=== PATIENT | female | born 1960 | race Caucasian/White ===

== ENCOUNTER → 2020-06-18 | Outpatient (CLI) | payer OTHER | LOC: M.ULTRA 15:58 | PROVIDERS: ATTEND Specialist | DX: R22.0 Localized swelling, mass and lump, head (principal) ==

== ENCOUNTER 2020-08-29 13:52 | Inpatient (IN) | payer OTHER ==
[~2020-08-29] VITALS: Ht 152.4 cm; Wt 54.4 kg
--- NOTE | ~2020-08-29 | OP ---
[facility] [address] [place] [address] OPERATIVE REPORT Name: JAS MENDOZA Room: [address] IN M.R.#: [id number] Admission: 08/29/20 Attend Phys: Arun Holt Discharge: Date of : 56 Report #: [id number] THIS REPORT FOR: cc: Pernell Carmichael. Pernell Chaudhary. KEN ~ Arun Holt MD DATE OF SERVICE: 08/29/2020 PREOPERATIVE DIAGNOSIS: Acute appendicitis. POSTOPERATIVE DIAGNOSES: Acute perforated appendicitis. OPERATION: Laparoscopic appendectomy. SURGEON: Arun Holt MD ANESTHESIA: General. ESTIMATED BLOOD LOSS: Minimal. SPECIMEN: Appendix. DESCRIPTION OF PROCEDURE: After informed consent was obtained, the patient was brought to the operating room and placed supine. SCDs were placed and working, preoperative antibiotics were administered, general anesthesia was induced. The abdomen was prepped and draped in the usual sterile fashion. A 10 mm incision was made below the umbilicus. Fascia was incised and a trocar was placed. Pneumoperitoneum was established. Right upper quadrant and left lower quadrant 5 mm trocars were placed. The appendix was noted to be severely inflamed. Once I just touched the appendix, it leaked stool through a perforation. This was suctioned out. I was able to ligate the mesoappendix using the LigaSure device. The base of the appendix was healthy. This was stapled off with a LEEANN blue load stapler. A single fire was used. The appendix was then placed into an Endopouch and removed. Fluid that had become infected was suctioned out. This ran along the right pericolic gutter up to the right hemiliver. The ports were removed under direct vision. The fascia was closed with a vmhpdk-cy-lamsj 0 Vicryl. Skin was closed with 4-0 Monocryl. Incisions were dressed with Steri-Strips and gauze. COMPLICATIONS: [place] [address] OPERATIVE REPORT Name: JAS MENDOZA Room: [address] IN [facility].#: [id number] Admission: 08/29/20 Attend Phys: Arun Holt Discharge: Date of : 56 Report #: [id number] DISPOSITION: The patient was taken to recovery in satisfactory condition. By: 15 22Arun Holt MD /nt
[2020-08-29 14:01] VITALS: BP 173/102
[2020-08-29] MEDS ORDERED: LISINOPRIL-HCT1 EACH PO (14:05)
[2020-08-29 14:34] LABS: HEMATOCRIT 41.6 % (37.0-47.0); HEMOGLOBIN 14.2 gm/dL (12.0-15.0); MCH 32.6 pg (26.0-34.0); MCHC 34.2 g/dL (28.0-37.0); MCV 95.3 fL (80.0-100.0); MPV 9.1 fl. (7.2-11.1); NUCLEATED RBCS 0 /100WBC; PLATELET COUNT* 186 thou/uL (150-400); RBC 4.36 mil/uL (4.20-5.00); RDW-CV 12.8 % (10.5-14.5); WBC 9.1 thou/uL (4.0-11.0)
[2020-08-29 14:43] LABS: CALCIUM 9.5 mg/dL (8.5-10.1); CREATININE 0.8 mg/dL (0.6-1.3); POTASSIUM 3.6 mmol/L (3.5-5.1)
[2020-08-29 14:47] LABS: ALBUMIN 4.2 g/dL (3.4-5.0); TOTAL BILIRUBIN 0.9 mg/dL (<0.1-1.0); TOTAL PROTEIN 7.6 g/dL (6.4-8.2)
[2020-08-29 14:53] LABS: URINE BILIRUBIN NEGATIVE (Negative); URINE BLOOD NEGATIVE (Negative); URINE CLARITY CLEAR; URINE COLOR YELLOW; URINE GLUCOSE-RANDOM NEGATIVE (Negative); URINE LEUKOCYTES-REFLEX NEGATIVE (Negative); URINE NITRITE-REFLEX NEGATIVE (Negative); URINE PROTEIN NEGATIVE (Negative); URINE UROBILINOGEN 0.2 E.U./dl (0.2-1.0)
[2020-08-29 14:54] LABS: URINE KETONES 3+ (Negative)
[2020-08-29 15:04] LABS: ABSOLUTE LYMPHOCYTES 1.3 thou/uL (0.8-5.3); ABSOLUTE MONOCYTES 0.2 thou/uL (0.0-1.2); ABSOLUTE NEUTROPHILS 7.6 thou/uL (1.6-8.1); ATYPICAL LYMPHS 2 %
[2020-08-29 15:05] LABS: PLATELET ESTIMATE ADEQUATE
[2020-08-29 17:40] VITALS: BP 141/86
[2020-08-29 21:15] VITALS: BP 126/62
[2020-08-30 00:18] VITALS: BP 128/73
[2020-08-30 04:36] VITALS: BP 114/52
[2020-08-30 08:00] VITALS: BP 104/65
--- NOTE | 2020-08-30 10:32 | EKG ---
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 08/30/20 1032 1738 1738 Dov Nobles MD, [facility] /EPI
[2020-08-30 11:45] VITALS: BP 101/62
[2020-08-30 15:30] VITALS: BP 109/64
[2020-08-30 20:00] VITALS: BP 114/70
[2020-08-31 08:10] VITALS: BP 128/78
[2020-08-31] MEDS ORDERED: AUGMENTIN 875-1 EACH PO (12:10)
[2020-08-31 12:52] VITALS: BP 128/78
--- NOTE | 2020-09-02 18:06 | PATH ---
[address] [address] PATHOLOGY RPT PROCEDURE Name: JAS MENDOZA Room: [address] IN .R.#: [id number] Admission: 08/29/20 Date of : 56 Discharge: 08/31/20 Report #: [id number] Path Case #: [id number] [facility] Accession Number: [id number] . 01 Material submitted: . appendix - APPENDIX . 01 Clinical history: . APPENDICITTIS . 02 Diagnosis: Appendix: - Acute appendicitis, periappendicitis, and serositis, with evidence of perforation. (FIDELINA:pit 09/02/2020) QTP 09/02/2020 1545 Local . 02 Electronically signed: . Dwight Jhaveri MD, Pathologist NPI- [id number] . 01 Gross description: . Fixative: Formalin Labeled: Appendix Appendix length: 6.3 cm Appendix diameter: Up to 1.2 cm Mesoappendix: 0.9 cm Proximal margin: Stapled closed; the neville are removed and the new margin is inked black Serosa: Dusky slaughter-brown Cut surface: Displays a patent to dilated lumen filled with fecal material Luminal diameter: Up to 0.8 cm Perforation: Large perforation measuring 2.5 cm near distal tip, 3.7 cm from proximal margin . Proximal margin and bisected tip in cassette A1. Blood Bank Calendar Control Clerk sections of perforation in cassette A2. Blood Bank Calendar Control Clerk cross-sections of appendix in cassette A3 (CAA; 09/01/2020) QAC/QA 09/01/2020 1317 Local . 02 Pathologist provided ICD-10: K35.80, K65.8 . 02 CPT . 026290 Specimen Comment: A courtesy copy of this report has been sent to [phone] Specimen Comment: [place] [address] PATHOLOGY RPT PROCEDURE Name: KELLYJAS Morocho Room: [address]#: [id number] Admission: 08/29/20 Date of : 56 Discharge: 08/31/20 Report #: [id number] Path Case #: [id number] Performed at: [facility] [place] [address] [facility] [address], [place] [id number] MD John Roach MD Phone: [phone] Performed at: [address] [address] [address], [place], [place] [id number] MD Dwight Jhaveri MD Phone: [phone]
== END 2020-08-31 13:25 | disposition home or self-care (01) | DRG 340 ==
LOC: M.ERS 13:52 → M.TBA-ER 16:20 → M.ERS 16:20 → M.TBA-ER 17:35 → M.ORTHSURG 21:15
PROVIDERS: Nurse Practitioner Family; ADMIT Surgery; ATTEND Surgery
PROC: 0DTJ4ZZ Resection of Appendix, Percutaneous Endoscopic Approach (ICD-10-PCS; principal; 2020-08-29)
DX: K35.32 Acute appendicitis with perforation, localized peritonitis, and gangrene, without abscess (principal); I10 Essential (primary) hypertension; Z20.822 Contact with and (suspected) exposure to COVID-19; Z79.899 Other long term (current) drug therapy; Z72.89 Other problems related to lifestyle

== ENCOUNTER → 2021-02-17 | Outpatient (CLI) | payer OTHER ==
[~2021-02-17] MED LIST: AUGMENTIN 875-1 EACH PO; LISINOPRIL-HCT1 EACH PO
== END ==
LOC: M.ULTRA 15:10
PROVIDERS: ATTEND Specialist
DX: I89.0 Lymphedema, not elsewhere classified (principal); I10 Essential (primary) hypertension; D72.819 Decreased white blood cell count, unspecified

== ENCOUNTER → 2021-03-30 | Outpatient (CLI) | payer OTHER | LOC: M.RAD 15:26 | PROVIDERS: ATTEND Specialist | DX: Z12.31 Encounter for screening mammogram for malignant neoplasm of breast (principal); N63.10 Unspecified lump in the right breast, unspecified quadrant; N63.20 Unspecified lump in the left breast, unspecified quadrant; N64.89 Other specified disorders of breast ==

== ENCOUNTER → 2021-04-03 | Outpatient (CLI) | payer OTHER | LOC: M.ULTRA 14:56 | PROVIDERS: ATTEND Specialist | DX: N60.02 Solitary cyst of left breast (principal) ==